=== PATIENT | female | born 1945 | race Caucasian/White ===

== ENCOUNTER 2020-07-15 15:14 | Observation (INO) | payer MEDICARE ==
--- NOTE | 2020-07-15 16:04 | ER Document Report ---
ED Medical Screen (RME) - General Chief Complaint: Shortness Of Breath Stated Complaint: SHORTNESS OF BREATH,COUGH Time Seen by Provider: 07/15/20 15:57 Primary Care Provider: GRACE COHEN MD [Primary Care Provider] - Follow up as needed Notes: 75-year-old female presents to ED for complaint of cough congestion short of breath for about 2 months. She states she has had a low-grade fever off and on. She does have a decrease in taste but no decrease in smell that she knows of I did review the medical history with her. She does not smoke drink or use any illicit drugs. Will get flu Covid and chest x-ray and she will be followed by the another provider. Her lungs are clear to auscultation very minimal shortness of breath at this time. The patient was evaluated during the global Covid 19 pandemic, and that diagnosis was suspected/considered upon their initial presentation. Their evaluation, treatment and testing was consistent with current guidelines for patients who present with complaints or symptoms that may be related to Covid 19. I have greeted and performed a rapid initial assessment of this patient. A comprehensive ED assessment and evaluation of the patient, analysis of test re sults and completion of medical decision making process will be conducted by an additional ED providers. TRAVEL OUTSIDE OF THE [place] IN LAST 30 DAYS: No - Related Data Allergies/Adverse Reactions: erythromycin base [Erythromycin Base] Allergy (Verified 08/19/16 14:24) Penicillins Allergy (Verified 08/19/16 14:24) Anaphylaxis Shellfish * [Shellfish] Allergy (Verified 08/19/16 14:24) ITCHING Past Medical History - General Information source: Patient - Social History Cigarette use (# per day): No Chew tobacco use (# tins/day): No Frequency of alcohol use: None Drug Abuse: None Lives with: Family Family history: Reviewed & Not Pertinent - Past Medical History Cardiac Medical History: Reports: Hx Hypertension - MEDICATION CONTROLLED Pulmonary Medical History: Reports: Other - Reactive lung disorder EENT Medical History: Reports: None Neurological Medical History: Reports: None Endocrine Medical History: Reports: None Renal/ Medical History: Reports: None Malignancy Medical History: Reports: None GI Medical History: Reports: Hx Colonoscopy, Hx Endoscopy Musculoskeltal Medical History: Reports Hx Arthritis Skin Medical History: Reports None Psychiatric Medical History: Reports: Hx Anxiety, Hx Depression Traumatic Medical History: Reports: None Infectious Medical History: Reports: None Past Surgical History: Reports: Hx Orthopedic Surgery - Laminectomy and knee replacement, Hx Vascular Surgery - Stent in subclavian, Other - 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 - Immunizations History of Pneumococcal Vaccine: Yes - 2018 History of Influenza Vaccine for 06/2019 - 11/2019 Season: Yes Immunizations Comment: Also has had the shingles shot Physical Exam - Vital signs Vitals: Temp Pulse Resp BP Pulse Ox 99.2 F 97 22 H 167/105 H 95 07/15/20 15:21 07/15/20 15:21 07/15/20 15:21 07/15/20 15:21 07/15/20 15:21 Course - Vital Signs Vital signs: Temp Pulse Resp BP Pulse Ox 99.2 F 97 22 H 167/105 H 95 07/15/20 15:21 07/15/20 15:21 07/15/20 15:21 07/15/20 15:21 07/15/20 15:21 Doctor's Discharge - Discharge Referrals: GRACE COHEN MD [Primary Care Provider] - Follow up as needed
--- NOTE | 2020-07-15 16:32 | RADIOLOGY REPORT (SQ) ---
EXAM DESCRIPTION: CHEST SINGLE VIEW IMAGES COMPLETED DATE/TIME: 07/15/2020 4:18 pm REASON FOR STUDY: cough congestion short of breath COMPARISON: None. EXAM PARAMETERS: NUMBER OF VIEWS: One view. TECHNIQUE: Single frontal radiographic view of the chest acquired. RADIATION DOSE: NA LIMITATIONS: None. FINDINGS: LUNGS AND PLEURA: No opacities, masses or pneumothorax. No pleural effusion. MEDIASTINUM AND HILAR STRUCTURES: No masses. Contour normal. HEART AND VASCULAR STRUCTURES: Heart normal in size. Normal vasculature. BONES: No acute findings. HARDWARE: None in the chest. OTHER: No other significant finding. IMPRESSION: NO ACUTE RADIOGRAPHIC FINDING IN THE CHEST. TECHNICAL DOCUMENTATION: JOB ID: [id number] 2010 [employer]- All Rights Reserved Reading location - IP/workstation name: [email or web address]
[2020-07-15 18:18] LABS: ABSOLUTE BASOPHILS # (AUTO) 0.1 10^3/uL (0.0-0.2); ABSOLUTE EOSINOPHILS # (AUTO) 0.1 10^3/uL (0.0-0.6); ABSOLUTE LYMPHOCYTES (AUTO) 2.2 10^3/uL (0.5-4.7); ABSOLUTE MONOCYTES (AUTO) 0.9 10^3/uL (0.1-1.4); ABSOLUTE NEUT (AUTO) 9.9 10^3/uL (1.7-8.2); BASOPHILS % (AUTO) 0.5 % (0-2); EOSINOPHILS % (AUTO) 0.6 % (0-6); HEMATOCRIT 34.3 % (36.0-47.0); HEMOGLOBIN 10.9 g/dL (12.0-15.5); LYMPHOCYTES % (AUTO) 16.4 % (13-45); MEAN CORPUSCULAR HEMOGLOBIN 23.8 pg (27.0-33.4); MEAN CORPUSCULAR HGB CONC 31.7 g/dL (32.0-36.0); MEAN CORPUSCULAR VOLUME 75 fl (80-97); MONOCYTES % (AUTO) 6.9 % (3-13); PLATELET COUNT 336 10^3/uL (150-450); RED BLOOD COUNT 4.57 10^6/uL (3.72-5.28); RED CELL DISTRIBUTION WIDTH 16.7 % (11.5-14.0); SEGMENTED NEUTROPHILS % (AUTO) 75.6 % (42-78); TOTAL CELLS COUNTED % (AUTO) 100 %; WHITE BLOOD COUNT 13.1 10^3/uL (4.0-10.5)
[2020-07-15] MEDS ORDERED: IPRATROPIUM/ALBUTEROL 0.5-2.5 MG/3 ML AMPUL NEB ONE ×2 (18:26→21:31)
[2020-07-15 18:39] LABS: ALBUMIN 4.3 g/dL (3.5-5.0); ALKALINE PHOSPHATASE 59 U/L (38-126); ANION GAP 11 (5-19); ASPARTATE AMINO TRANSFERASE 51 U/L (14-36); BILIRUBIN,DIRECT 0.1 mg/dL (0.0-0.4); BILIRUBIN,TOTAL 0.3 mg/dL (0.2-1.3); BLOOD UREA NITROGEN 13 mg/dL (7-20); CALCIUM 9.7 mg/dL (8.4-10.2); CARBON DIOXIDE 27 mmol/L (22-30); CHLORIDE 99 mmol/L (98-107); GLUCOSE 96 mg/dL (75-110); POTASSIUM 4.2 mmol/L (3.6-5.0); TOTAL PROTEIN 7.2 g/dL (6.3-8.2)
[2020-07-15 18:50] LABS: NT PRO BNP 197 pg/mL (<125)
[2020-07-15 18:54] LABS: TROPONIN I < 0.012 ng/mL
--- NOTE | 2020-07-15 20:05 | ER Document Report ---
ED General - General Chief Complaint: Shortness Of Breath Stated Complaint: SHORTNESS OF BREATH,COUGH Time Seen by Provider: 07/15/20 15:57 Primary Care Provider: GRACE COHEN MD [Primary Care Provider] - Follow up as needed TRAVEL OUTSIDE OF THE [place] IN LAST 30 DAYS: No - HPI Notes: 75-year-old female to the emergency department with complaints of cough, shortness of breath, low-grade fever for the past 2 months. She states that she also has been feeling exertional shortness of breath. She states that when she walks from one room to the next she feels like she climbed a mountain. She states that she is a former smoker. She states she has been told that she has reactive lung disorder but never been diagnosed with COPD. She states she quit smoking over 30 years ago. She states she has high blood pressure. She has never had a history of congestive heart failure. She denies any chest pain with this. She states in regards to her fever that her temperatures run no higher than 99.4. She states the cough is productive of yellow-osorio phlegm. She states that she feels like her legs are a little bit more swollen as well. She has never had a heart attack. She is had a normal stress test for years ago. She states that she has not recently been traveling on any exogenous hormones. She has not been more immobilized. There is past family history of congestive heart failure. Denies any known sick contacts for coronavirus. Does admit to some mild decrease in taste but denies any loss of smell. The patient was evaluated during the global COVID 19 pandemic, and that diagnosis was suspected/considered upon their initial presentation. Their evaluation, treatment, and testing was consistent with current guidelines for patients who present with complaints or symptoms that may be related to COVID-19. - Related Data Allergies/Adverse Reactions: erythromycin base [Erythromycin Base] Allergy (Verified 07/15/20 18:24) Penicillins Allergy (Verified 07/15/20 18:24) Anaphylaxis Shellfish * [Shellfish] Allergy (Verified 07/15/20 18:24) ITCHING Past Medical History - General Information source: Patient - Social History Smoking Status: Former Smoker Cigarette use (# per day): No Chew tobacco use (# tins/day): No Frequency of alcohol use: None Drug Abuse: None Lives with: Family Family History: Reviewed & Not Pertinent Patient has homicidal ideation: No - Past Medical History Cardiac Medical History: Reports: Hx Hypertension - MEDICATION CONTROLLED Pulmonary Medical History: Reports: Other - Reactive lung disorder EENT Medical History: Reports: None Neurological Medical History: Reports: None Endocrine Medical History: Reports: None Renal/ Medical History: Reports: None Malignancy Medical History: Reports: None GI Medical History: Reports: Hx Colonoscopy, Hx Endoscopy Musculoskeletal Medical History: Reports Hx Arthritis Skin Medical History: Reports None Psychiatric Medical History: Reports: Hx Anxiety, Hx Depression Traumatic Medical History: Reports: None Infectious Medical History: Reports: None Past Surgical History: Reports: Hx Orthopedic Surgery - Laminectomy and knee replacement, Hx Vascular Surgery - Stent in subclavian, Other - 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 denies: Chills Cardiovascular: Edema. denies: Chest pain, Palpitations, Heart racing, Orthopnea, Dyspnea, Syncope, Dizziness, Lightheaded Respiratory: Cough, Short of breath Physical Exam - Vital signs Vitals: Temp Pulse Resp BP Pulse Ox 99.2 F 97 22 H 167/105 H 95 07/15/20 15:21 07/15/20 15:21 07/15/20 15:21 07/15/20 15:21 07/15/20 15:21 Interpretation: Hypertensive - General General appearance: Appears well, Alert In distress: None - HEENT Head: Normocephalic, Atraumatic Eyes: Normal Pupils: PERRL Neck: Normal, Supple - Respiratory Respiratory status: No respiratory distress Chest status: Nontender. No: Accessory muscle use Breath sounds: Normal, Wheezing - fine expiratory wheezing in all lung reynoso.. No: Rales, Rhonchi Chest palpation: Normal - Cardiovascular Rhythm: Regular Heart sounds: Normal auscultation Murmur: No Notes: bilateral leg edema, trace to 1+ - Abdominal Inspection: Normal Distension: No distension Bowel sounds: Normal Tenderness: Nontender Organomegaly: No organomegaly - Back Back: Normal, Nontender. No: CVA tenderness - Neurological Neuro grossly intact: Yes Cognition: Normal Orientation: AAOx4 [place] Coma Scale Eye Opening: Spontaneous [place] Coma Scale Verbal: Oriented [place] Coma Scale Motor: Obeys Commands [place] Coma Scale Total: 15 Speech: Normal Cranial nerves: Normal Cerebellar coordination: Normal Motor strength normal: LUE, RUE, LLE, RLE Additional motor exam normals: Equal network mgr Sensory: Normal - Psychological Associated symptoms: Normal affect, Normal mood - Skin Skin Temperature: Warm Skin Moisture: Dry Skin Color: Normal Course - Re-evaluation Re-evalutation: 07/15/20 22:05 Attempted to ambulate the patient after breathing treatment. However she got significantly short of breath and oxygen levels went down to 89%. After resting for several minutes she could recover and her oxygen level would improve however she still was tachypneic and looking like she was working to breathe. She did not have further wheezing. 07/15/20 22:53 Discussed the patient with Dr. Rosario, my ER attending. She agrees that if patient is deciding when she ambulates and is tachycardic that admission is warranted. Spoke with , hospitalist. He would like to come and see the patient prior to admission. We discussed x-ray finding, BNP, troponin, D-dimer, ambulation findings. He is aware that I have ordered Rocephin for the patient as well as Solu-Medrol and 2 DuoNebs. He will follow up with me once he sees the patient. Progress: Dr. Ochoa saw patient and will accept her to his service. He would like for her to go to the medical floor. - Vital Signs Vital signs: Temp Pulse Resp BP Pulse Ox 99.2 F 97 22 H 167/105 H 95 07/15/20 18:23 07/15/20 15:21 07/15/20 15:21 07/15/20 15:21 07/15/20 15:21 - Laboratory Result Diagrams: 07/15/20 17:58 07/15/20 17:58 Laboratory results interpreted by me: 07/15/20 07/15/20 07/15/20 17:58 17:58 17:58 WBC 13.1 H Hgb 10.9 L Hct 34.3 L MCV 75 L MCH 23.8 L MCHC 31.7 L RDW 16.7 H Absolute Neuts (auto) 9.9 H AST 51 H NT-Pro-B Natriuret Pep 197 H - Diagnostic Test Radiology reviewed: Image reviewed, Reports reviewed - EKG Interpretation by Me Additional EKG results interpreted by me: 07/15/20 Rate 90 Rhythm sinus Interpretation: No STEMI, no ST elevation. No comparison. Discharge - Discharge Clinical Impression: Exertional shortness of breath, Hypoxia Condition: Stable Disposition: ADMITTED INPATIENT Admitting Provider: Dr. Ochoa Unit Admitted: Medical Floor Referrals: GRACE COHEN MD [Primary Care Provider] - Follow up as needed
[2020-07-15 20:45] LABS: A TYPE INFLUENZA AG NEGATIVE (NEGATIVE); B INFLUENZA AG NEGATIVE (NEGATIVE)
[2020-07-15] MEDS ORDERED: METHYLPREDNISOLONE INJ 125 MG/2 ML SDV IV ONE (21:02)
[2020-07-15] MEDS ORDERED: CEFTRIAXONE 1 GM/D5W RTU 1 GM/50 ML RTUPB IV ONE (22:36)
[2020-07-15] MEDS ORDERED: ONDANSETRON HCL INJ/PF 4 MG/2 ML SDV IV PRN (23:27)
[2020-07-15] MEDS ORDERED: ACETAMINOPHEN 325 MG TABLET PO PRN (23:27)
[2020-07-15] MEDS ORDERED: IPRATROPIUM/ALBUTEROL 0.5-2.5 MG/3 ML AMPUL NEB PRN (23:27)
[2020-07-15] MEDS ORDERED: ACETAMINOPHEN 325 MG TABLET PO ONE (23:27)
--- NOTE | 2020-07-16 00:26 | PDOC H&P ---
History of Present Illness Admission Date/PCP: GRACE COHEN MD Patient complains of: shortness of breath History of Present Illness: GILLES YOUNGER is a 75 year old female with a history of hypertension and reactive airway disease now presents with progressively worsening shortness of breath with exertion for the past 2 months and over the past week has been feeling short of breath and minimal activities like going to bathroom makes her significantly short of breath. Associated with this she also states that she has been having bilateral leg swelling over the past 2 months but denies orthopnea or PND. She also reports that she has been having cough productive of yellowish sputum, low-grade subjective fever and wheezing. She states that she has never been diagnosed with COPD in the past and has been a very long time since she quit smoking. She uses inhalers occasionally for reactive airway disease. She denies runny nose, congestion, sore throat, nausea, vomiting, recent contact with sick patient. She was treated with IV steroids and br eathing treatment at the ED with interval improvement in her shortness of breath but her oxygen saturation dropped to 88-89 after walking 10 to 15 feet and became very short of breath. Past Medical History Cardiac Medical History: Reports: Hypertension - MEDICATION CONTROLLED Pulmonary Medical History: Reports: Other - Reactive lung disorder EENT Medical History: Reports: None Neurological Medical History: Reports: None Endocrine Medical History: Reports: None Renal/ Medical History: Reports: None Malignancy Medical History: Reports: None Musculoskeltal Medical History: Reports: Arthritis Skin Medical History: Reports: None Psychiatric Medical History: Reports: Depression Traumatic Medical History: Reports: None Hematology: Denies: Anemia, Sickle Cell Disease Infectious Medical History: Reports: None Past Surgical History Past Surgical History: Reports: Orthopedic Surgery - Laminectomy and knee replacement, Vascular Surgery - Stent in subclavian, Other - 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 Denies: Amputation Social History Information Source: Patient Lives with: Family Smoking Status: Former Smoker Electronic Cigarette use?: No Hx Recreational Drug Use: No Drugs: None - Advance Directive Resuscitation Status: Full Code Family History Family History: Reviewed & Not Pertinent Parental Family History Reviewed: Yes Children Family History Reviewed: Yes Sibling(s) Family History Reviewed.: Yes Medication/Allergy Home Medications: Amlodipine/Valsartan [Exforge 5-160 mg Tablet] 1 tab PO DAILY 03/10/13 Bisoprolol Fumarate/Hctz [Bisoprolol-Hctz 10-6.25 mg Tab] 2.5 mg PO DAILY 03/10/13 Clonazepam [Klonopin 0.5 mg Tablet Rapid Dissolve] 0.5 mg PO BID 03/10/13 Fluoxetine HCl [Prozac] 60 mg PO DAILY 03/10/13 Nortriptyline HCl [Pamelor 25 Mg Capsule] 25 mg PO DAILY 03/10/13 Omeprazole [Prilosec 20 mg Capsule] 20 mg PO DAILY 03/10/13 Dicyclomine HCl [Bentyl 20 mg Tablet] 20 mg PO QID #20 tablet 08/19/16 Promethazine HCl [Phenergan 25 mg Tablet] 25 mg PO ASDIR PRN #12 tablet 08/19/16 Allergies/Adverse Reactions: erythromycin base [Erythromycin Base] Allergy (Verified 07/15/20 18:24) Penicillins Allergy (Verified 07/15/20 18:24) Anaphylaxis Shellfish * [Shellfish] Allergy (Verified 07/15/20 18:24) ITCHING Review of Systems Constitutional: PRESENT: as per HPI Eyes: ABSENT: visual disturbances Ears: ABSENT: hearing changes Nose, Mouth, and Throat: ABSENT: as per HPI, headache(s), mouth pain, sore throat, vertigo, other Cardiovascular: PRESENT: as per HPI Respiratory: PRESENT: as per HPI Gastrointestinal: ABSENT: abdominal pain, constipation, diarrhea, hematemesis, hematochezia, nausea, vomiting Genitourinary: ABSENT: dysuria, hematuria Musculoskeletal: ABSENT: joint swelling Integumentary: ABSENT: rash, wounds Neurological: ABSENT: abnormal gait, abnormal speech, confusion, dizziness, focal weakness, syncope Psychiatric: ABSENT: anxiety, depression, homidical ideation, suicidal ideation Endocrine: ABSENT: cold intolerance, heat intolerance, polydipsia, polyuria Hematologic/Lymphatic: ABSENT: easy bleeding, easy bruising Physical Exam Vital Signs: Temp Pulse Resp BP Pulse Ox 99.2 F 97 22 H 167/105 H 95 07/15/20 18:23 07/15/20 15:21 07/15/20 15:21 07/15/20 15:21 07/15/20 15:21 Intake & Output 07/14/20 07/15/20 07/16/20 06:59 06:59 06:59 Intake Total 50 Balance 50 Weight 100.9 kg Additional comments: GENERAL APPEARANCE: Alert and oriented x3, no acute distress HEENT: Normocephalic and atraumatic. No scleral icterus. Moist oral mucosa NECK: Supple. No lymphadenopathy or tenderness. No carotid bruit. No JVD CHEST: Symmetric. Nontender to palpation. LUNGS: Clear with good air entry bilaterally, no wheezing or crackles appreciated HEART: Regular rate and rhythm with normal S1 and S2. No murmurs, gallops, or rubs. ABDOMEN: Flat, soft, active bowel sounds, no direct or rebound tenderness. No organomegaly detected. EXTREMITIES: Has +2 pitting edema below knees MUSCULOSKELETAL: Has scar from right knee replacement surgery. No muscle atrophy or deformity noted PSYCHIATRIC: The patient is awake, alert, and oriented x3. Recent and remote memory is intact. Appropriate mood and affect. SKIN: Warm, dry, and well perfused. NEUROLOGIC: No focal sensory or motor deficits are noted. Results Laboratory Results: 07/15/20 17:58 07/15/20 17:58 07/15/20 07/15/20 17:58 17:58 WBC 13.1 H RBC 4.57 Hgb 10.9 L Hct 34.3 L MCV 75 L MCH 23.8 L MCHC 31.7 L RDW 16.7 H Plt Count 336 Seg Neutrophils % 75.6 Sodium 137.0 Potassium 4.2 Chloride 99 Carbon Dioxide 27 Anion Gap 11 BUN 13 Creatinine 0.84 Est GFR ( Amer) > 60 Glucose 96 Calcium 9.7 Total Bilirubin 0.3 AST 51 H Alkaline Phosphatase 59 Total Protein 7.2 Albumin 4.3 07/15/20 17:58 Troponin I < 0.012 NT-Pro-B Natriuret Pep 197 H Impressions: Chest X-Ray 07/15/20 16:05 IMPRESSION: NO ACUTE RADIOGRAPHIC FINDING IN THE CHEST. Assessment and Plan - Diagnosis (1) Exertional shortness of breath Is this a current diagnosis for this admission?: Yes Plan: Patient presents with dyspnea on exertion, bilateral lower extremity swelling Was noted to have wheezing on presentation at the ED BNP was 197, chest x-ray showed no acute findings Likely cause could be new onset heart failure vs undiagnosed COPD exacerbation Started on the Lasix, strict I&O's, daily weight, fluid restriction Continue breathing treatment and prednisone 40 mg daily Will obtain echocardiography in the morning Consider obtaining PFT outpatient (2) Bronchitis Is this a current diagnosis for this admission?: Yes Plan: Presence with cough productive of yellow sputum Has leukocytosis, chest x-ray showed no acute findings Patient was given ceftriaxone 1g IV at the ED Continue breathing treatment Started on Levaquin 750 mg p.o. daily May benefit from outpatient PFT (3) Suspected COVID-19 virus infection Is this a current diagnosis for this admission?: Yes Plan: Presenting symptoms suspicious for possible COVID-19 Continue supportive care Special airborne isolation Follow-up with COVID-19 result (4) Leukocytosis Is this a current diagnosis for this admission?: Yes Plan: Likely due to viral infection Currently on Levaquin (5) Hypertension Is this a current diagnosis for this admission?: Yes Plan: Continue home medications - Time Time Spent with patient: 35 or more minutes Total Critical Time (Minutes): 40 Medications reviewed and adjusted accordingly: Yes Anticipated Discharge Disposition: Home, Self Care Anticipated Discharge Timeframe: within 48 hours - Inpatient Certification Based on my medical assessment, after consideration of the patient's comorbidities, presenting symptoms, or acuity I expect that the services needed warrant INPATIENT care.: Yes I certify that my determination is in accordance with my understanding of Medicare's requirements for reasonable and necessary INPATIENT services [42 CFR 412.3e].: Yes Medical Necessity: Failure to Improve With Outpatient Therapy, Need Close Monitoring Due to Risk of Patient Decompensation, Need For Continuous Telemetry Monitoring Post Hospital Care: D/C or Transfer Summary
[2020-07-16] MEDS ORDERED: AZITHROMYCIN 250 MG TABLET PO SCH (00:45)
[2020-07-16] MEDS: FUROSEMIDE INJ/PF 40 MG/4 ML SDV IV SCH ×3 (02:03→23:34)
[2020-07-16] MEDS ORDERED: PANTOPRAZOLE SODIUM 20 MG TABLET.DR PO SCH (06:00)
--- NOTE | 2020-07-16 06:51 | EKG REPORT ---
SEVERITY:- ABNORMAL ECG - SINUS RHYTHM PROBABLE LEFT ATRIAL ABNORMALITY BASELINE ARTEFACT : Confirmed by: Edmund Jessica MD 16-Jul-2020 06:50:42
[2020-07-16 08:34] LABS: ABSOLUTE LYMPHOCYTES (AUTO) 0.9 10^3/uL (0.5-4.7); ABSOLUTE MONOCYTES (AUTO) 0.1 10^3/uL (0.1-1.4); ABSOLUTE NEUT (AUTO) 7.8 10^3/uL (1.7-8.2); BASOPHILS % (AUTO) 0.2 % (0-2); HEMATOCRIT 36.2 % (36.0-47.0); HEMOGLOBIN 11.7 g/dL (12.0-15.5); LYMPHOCYTES % (AUTO) 10.5 % (13-45); MEAN CORPUSCULAR HGB CONC 32.4 g/dL (32.0-36.0); MEAN CORPUSCULAR VOLUME 74 fl (80-97); MONOCYTES % (AUTO) 0.9 % (3-13); PLATELET COUNT 340 10^3/uL (150-450); RED BLOOD COUNT 4.88 10^6/uL (3.72-5.28); RED CELL DISTRIBUTION WIDTH 16.6 % (11.5-14.0); SEGMENTED NEUTROPHILS % (AUTO) 88.4 % (42-78); TOTAL CELLS COUNTED % (AUTO) 100 %; WHITE BLOOD COUNT 8.8 10^3/uL (4.0-10.5)
[2020-07-16 08:48] LABS: ANION GAP 15 (5-19); BLOOD UREA NITROGEN 13 mg/dL (7-20); CARBON DIOXIDE 25 mmol/L (22-30); CHLORIDE 100 mmol/L (98-107); GLUCOSE 172 mg/dL (75-110); POTASSIUM 4.5 mmol/L (3.6-5.0)
[2020-07-16] MEDS ORDERED: AMLODIPINE BESYLATE 5 MG TABLET PO SCH (10:00)
[2020-07-16] MEDS: PREDNISONE 20 MG TABLET PO SCH (10:06)
[2020-07-16] MEDS: LEVOFLOXACIN 750 MG TABLET PO SCH (10:07)
[2020-07-16] MEDS: ENOXAPARIN SODIUM INJ 40 MG/0.4 ML DISP.SYRIN SUBCUT SCH (10:07)
[2020-07-16] MEDS: FLUOXETINE HCL 20 MG CAPSULE PO SCH (10:07)
[2020-07-16 13:48] LABS: APPEARANCE,URINE CLEAR; BILIRUBIN,URINE NEGATIVE (NEGATIVE); COLOR,URINE STRAW; GLUCOSE, URINE NEGATIVE (NEGATIVE); KETONES,URINE NEGATIVE (NEGATIVE); LEUKOCYTE ESTERASE,URINE NEGATIVE (NEGATIVE); NITRITE,URINE NEGATIVE (NEGATIVE); PROTEIN,URINE NEGATIVE (NEGATIVE); URINE SPECIFIC GRAVITY 1.006; UROBILINOGEN,URINE NEGATIVE mg/dL (<2.0)
[2020-07-16] MEDS ORDERED: [UNRECOGNIZED DRUG - OTHER] PO SCH (14:00)
[2020-07-16] MEDS ORDERED: BISOPROLOL PO SCH (14:00)
[2020-07-16] MEDS ORDERED: HYDROCHLOROTHIAZIDE PO SCH (14:00)
[2020-07-16] MEDS ORDERED: ACETAMINOPHEN 325 MG TABLET PO PRN (16:18)
--- NOTE | 2020-07-16 16:43 | PDOC PROGRESS REPORT ---
Subjective Progress Note for:: 07/16/20 Subjective:: The patient is a 75-year-old female with a past medical history significant for hypertension, HLD, GERD, arthritis, and depression/anxiety who was admitted 07/16/2020 with dyspnea on exertion for evaluation for new diagnosis of CHF. Patient was seen on afternoon rounds. She is found resting in bed, comfortably, on room air. She was noted to be lying fully supine without tachypnea or increased work of breathing. She does report that dyspnea while at rest has res olved but does have continued shortness of breath with minimal exertion. She reports edema to bilateral lower extremities. Confirms low-grade fevers (99th) x2 to 3 weeks and a nonproductive cough. Otherwise, she requests to be discharged home. She otherwise denies chest pain, palpitations, orthopnea, abdominal pain, nausea, vomiting, diarrhea. She has no other questions or concerns at this time. No concerns per nursing. Reason For Visit: POSSIBLE NEW ONSET HEART FAILURE,HYPERACTIVE Physical Exam Vital Signs: Temp Pulse Resp BP Pulse Ox 98.3 F 111 H 16 150/69 H 93 07/16/20 15:00 07/16/20 15:00 07/16/20 15:00 07/16/20 15:00 07/16/20 15:00 Intake & Output 07/15/20 07/16/20 07/17/20 06:59 06:59 06:59 Intake Total 50 Balance 50 Weight 100.9 kg General appearance: PRESENT: no acute distress, cooperative, obese, well- developed, well-nourished Head exam: PRESENT: atraumatic, normocephalic Eye exam: PRESENT: conjunctiva pink, EOMI, PERRLA. ABSENT: scleral icterus Mouth exam: PRESENT: moist, tongue midline Respiratory exam: PRESENT: clear to auscultation sylvie, symmetrical, unlabored, other - Room air. Breathing comfortably and maintaining oxygen saturations while lying fully supine.. ABSENT: rales, rhonchi, wheezes Cardiovascular exam: PRESENT: RRR, +S1, +S2, tachycardia - HR 104-120. ABSENT: diastolic murmur, rubs, systolic murmur Vascular exam: PRESENT: normal capillary refill Extremities exam: PRESENT: full ROM, +1 edema - +1, nonpitting, BLE. ABSENT: calf tenderness, clubbing, pedal edema Neurological exam: PRESENT: alert, awake, oriented to person, oriented to place, oriented to time, oriented to situation, CN II-XII grossly intact. ABSENT: motor sensory deficit Psychiatric exam: PRESENT: agitated, anxious. ABSENT: homicidal ideation, suicidal ideation Skin exam: PRESENT: dry, intact, warm. ABSENT: cyanosis, rash Results Laboratory Results: 07/16/20 08:10 07/16/20 08:10 07/15/20 07/15/20 07/16/20 17:58 17:58 08:10 WBC 13.1 H 8.8 RBC 4.57 4.88 Hgb 10.9 L 11.7 L Hct 34.3 L 36.2 MCV 75 L 74 L MCH 23.8 L 24.0 L MCHC 31.7 L 32.4 RDW 16.7 H 16.6 H Plt Count 336 340 Seg Neutrophils % 75.6 88.4 H Sodium 137.0 Potassium 4.2 Chloride 99 Carbon Dioxide 27 Anion Gap 11 BUN 13 Creatinine 0.84 Est GFR ( Amer) > 60 Glucose 96 Calcium 9.7 Total Bilirubin 0.3 AST 51 H Alkaline Phosphatase 59 Total Protein 7.2 Albumin 4.3 Urine Color Urine Appearance Urine pH Ur Specific [place] Urine Protein Urine Glucose (UA) Urine Ketones Urine Blood Urine Nitrite Ur Leukocyte Esterase Urine WBC (Auto) Urine RBC (Auto) 07/16/20 07/16/20 08:10 13:00 WBC RBC Hgb Hct MCV MCH MCHC RDW Plt Count Seg Neutrophils % Sodium 139.6 Potassium 4.5 Chloride 100 Carbon Dioxide 25 Anion Gap 15 BUN 13 Creatinine 0.74 Est GFR ( Amer) > 60 Glucose 172 H Calcium 10.0 Total Bilirubin AST Alkaline Phosphatase Total Protein Albumin Urine Color STRAW Urine Appearance CLEAR Urine pH 6.0 Ur Specific [place] 1.006 Urine Protein NEGATIVE Urine Glucose (UA) NEGATIVE Urine Ketones NEGATIVE Urine Blood NEGATIVE Urine Nitrite NEGATIVE Ur Leukocyte Esterase NEGATIVE Urine WBC (Auto) 1 Urine RBC (Auto) 1 07/15/20 07/16/20 07/16/20 17:58 01:08 08:10 Troponin I < 0.012 < 0.012 < 0.012 NT-Pro-B Natriuret Pep 197 H Impressions: Chest X-Ray 07/15/20 16:05 IMPRESSION: NO ACUTE RADIOGRAPHIC FINDING IN THE CHEST. Assessment and Plan - Diagnosis (1) Bronchitis Is this a current diagnosis for this admission?: Yes Plan: Presence with cough productive of yellow sputum Leukocytosis has resolved. Chest x-ray showed no acute findings Sputum culture pending. Patient was given ceftriaxone 1g IV at the ED Continue as needed breathing treatment Started on Levaquin 750 mg p.o. daily May benefit from outpatient PFT (2) Exertional shortness of breath Is this a current diagnosis for this admission?: Yes Plan: Patient presents with dyspnea on exertion, bilateral lower extremity swelling Was noted to have wheezing on presentation at the ED BNP was 197, chest x-ray showed no acute findings Likely cause could be new onset heart failure vs undiagnosed COPD exacerbation Continue on the Lasix, strict I&O's, daily weight, fluid restriction Continue breathing treatment and prednisone 40 mg daily Will obtain echocardiography Consider obtaining PFT outpatient (3) Hypertension Is this a current diagnosis for this admission?: Yes Plan: Blood pressure remains somewhat elevated; 150/69 this afternoon. Patient is noted to be anxious which may possibly be contributing. Have continued her home dose amlodipine, benazepril, bisoprolol, and hydrochlorothiazide. Low-sodium diet. (4) Leukocytosis Is this a current diagnosis for this admission?: Yes Plan: Resolved. Likely due to viral infection Currently on Levaquin for possible bronchitis (5) Suspected COVID-19 virus infection Is this a current diagnosis for this admission?: Yes Plan: Presenting symptoms suspicious for possible COVID-19 Continue supportive care Special airborne isolation Follow-up with COVID-19 result - Plan Summary Summary: Patient overall appears stable. She is maintaining oxygen saturations on room air while at rest. She is lying fully supine comfortably. Noted to have trace to +1, nonpitting, edema to bilateral lower extremities with clear lung sounds. She does report continued shortness of breath. Evaluation for CHF is being considered; echocardiogram pending. Hopefully this can be arranged/obtained within the next 24 hours patient is anxious to go home and is rapidly improving towards that goal. Anticipate discharge next 24 hours. - Time Time Spent with patient: 25-34 minutes Medications reviewed and adjusted accordingly: Yes Anticipated Discharge Disposition: Home, Self Care Anticipated Discharge Timeframe: within 24 hours
[2020-07-16] MEDS ORDERED: CLONAZEPAM 1 MG TABLET PO SCH (18:00)
[2020-07-16] MEDS ORDERED: (PENDING PHARMACY ID) (Clonazepam [Klonopin] 0.5 MG) PO SCH (18:00)
[2020-07-16] MEDS: CLONAZEPAM 1 MG TABLET PO PRN (21:10)
[2020-07-16] MEDS ORDERED: (PENDING PHARMACY ID) (Pravastatin Sodium [Pravastatin Sodium] 80 MG) PO SCH (22:00)
[2020-07-16] MEDS ORDERED: ATORVASTATIN CALCIUM 20 MG TABLET PO SCH (22:00)
[2020-07-16] MEDS ORDERED: (PENDING PHARMACY ID) (Nortriptyline Hcl [Pamelor] 75 MG) PO SCH (22:00)
[2020-07-16] MEDS ORDERED: NORTRIPTYLINE HCL 25 MG CAPSULE PO SCH (22:00)
[2020-07-17] MEDS: CLONAZEPAM 1 MG TABLET PO PRN (05:57)
[2020-07-17] MEDS ORDERED: PANTOPRAZOLE SODIUM 40 MG TABLET.DR PO SCH (06:00)
[2020-07-17 07:30] LABS: HEMATOCRIT 35.1 % (36.0-47.0); HEMOGLOBIN 11.4 g/dL (12.0-15.5); MEAN CORPUSCULAR HEMOGLOBIN 24.1 pg (27.0-33.4); MEAN CORPUSCULAR HGB CONC 32.3 g/dL (32.0-36.0); MEAN CORPUSCULAR VOLUME 75 fl (80-97); PLATELET COUNT 360 10^3/uL (150-450); RED BLOOD COUNT 4.71 10^6/uL (3.72-5.28); RED CELL DISTRIBUTION WIDTH 16.6 % (11.5-14.0); WHITE BLOOD COUNT 15.5 10^3/uL (4.0-10.5)
[2020-07-17 07:53] LABS: ANION GAP 13 (5-19); BLOOD UREA NITROGEN 21 mg/dL (7-20); CALCIUM 9.5 mg/dL (8.4-10.2); CARBON DIOXIDE 28 mmol/L (22-30); CHLORIDE 100 mmol/L (98-107); GLUCOSE 120 mg/dL (75-110)
[2020-07-17 08:02] LABS: POTASSIUM 3.5 mmol/L (3.6-5.0)
[2020-07-17] MEDS: PREDNISONE 20 MG TABLET PO SCH (09:59)
[2020-07-17] MEDS: ENOXAPARIN SODIUM INJ 40 MG/0.4 ML DISP.SYRIN SUBCUT SCH (09:59)
[2020-07-17] MEDS ORDERED: BENAZEPRIL HCL 20 MG TABLET PO SCH (10:00)
[2020-07-17] MEDS ORDERED: BISOPROLOL PO SCH (10:00)
[2020-07-17] MEDS ORDERED: PRENATAL VITAMIN W DHA CAPSULE PO SCH (10:00)
[2020-07-17] MEDS ORDERED: AMLODIPINE BESYLATE 5 MG TABLET PO SCH (10:00)
[2020-07-17] MEDS ORDERED: HYDROCHLOROTHIAZIDE PO SCH (10:00)
[2020-07-17] MEDS: FLUOXETINE HCL 20 MG CAPSULE PO SCH (10:00)
[2020-07-17] MEDS ORDERED: [UNRECOGNIZED DRUG - OTHER] PO SCH (10:00)
[2020-07-17] MEDS ORDERED: (PENDING PHARMACY ID) (Amlodipine Besylate/Benazepril [Amlodipine-Benazepril 5-20 Mg] 1 CA PO SCH (10:00)
[2020-07-17] MEDS: FUROSEMIDE INJ/PF 40 MG/4 ML SDV IV SCH (10:01)
[2020-07-17] MEDS: LEVOFLOXACIN 750 MG TABLET PO SCH (10:01)
[2020-07-17] MEDS ORDERED: POTASSIUM CHLORIDE 10 MEQ TABLET.ER PO ONE (11:00)
[2020-07-17 11:20] VITALS: BP 150/69
--- NOTE | 2020-07-17 16:21 | PDOC DISCHARGE SUMMARY ---
Impression - Admit/DC Date/PCP Admission Date/Primary Care Provider: 07/15/20 23:37 GRACE COHEN MD Discharge Date: 07/17/20 - Discharge Diagnosis (1) Bronchitis Is this a current diagnosis for this admission?: Yes (2) Exertional shortness of breath Is this a current diagnosis for this admission?: Yes (3) Hypertension Is this a current diagnosis for this admission?: Yes (4) Leukocytosis Is this a current diagnosis for this admission?: Yes (5) Suspected COVID-19 virus infection Is this a current diagnosis for this admission?: Yes - Assessment Summary: Patient overall appears stable. She is maintaining oxygen saturations on room air while at rest. She is lying fully supine comfortably. Noted to have trace to +1, nonpitting, edema to bilateral lower extremities with clear lung sounds. She does report continued shortness of breath. Evaluation for CHF is being considered; echocardiogram pending. Hopefully this can be arranged/obtained within the next 24 hours patient is anxious to go home and is rapidly improving towards that goal. Anticipate discharge next 24 hours. - Additional Information Resuscitation Status: Full Code Discharge Diet: Cardiac, Other (Comments) Discharge Activity: Activity As Tolerated, Balance Activity w/Rest, Slowly Increase Activity Referrals: GRACE COHEN MD [Primary Care Provider] - Follow up as needed ( office number) JACKELYN LLANES MD [ACTIVE STAFF] - (Follow up at earliest available appointment for evaluation for possible CHF. Recommend echocardiogram.) Prescriptions: Furosemide [Lasix 20 mg Tablet] 20 mg PO QAMP PRN #20 tablet PRN Reason: Levofloxacin [Levaquin 750 mg Tablet] 750 mg PO DAILY #5 tablet Albuterol Sulfate [Ventolin Hfa 8 gm Mdi] 2 puff IH Q4HP PRN #1 inhaler PRN Reason: Shortness Of Breath Home Medications: Amlodipine Besylate/Benazepril [Amlodipine-Benazepril 5-20 mg] 1 cap PO DAILY 07/16/20 Ascorbic Acid [Vitamin C] 1,000 mg PO DAILY 07/16/20 Bisoprolol/Hydrochlorothiazide [Bisoprolol-Hctz 5-6.25 mg Tab] 1 each PO DAILY 07/16/20 Cholecalciferol (Vitamin D3) [Vitamin D3 1000 Unit Tablet] 1,000 unit PO DAILY 07/16/20 Clonazepam [Klonopin] 0.5 mg PO BID 07/16/20 Fluoxetine HCl [Prozac] 20 mg PO DAILY 07/16/20 Fluoxetine HCl [Prozac] 40 mg PO DAILY 07/16/20 Multivit-Min/Folic Acid/Vit K1 [Multi For Her 50 Plus Softgel] 400 mcg PO DAILY 07/16/20 Nortriptyline HCl [Pamelor] 75 mg PO QHS 07/16/20 Omeprazole 40 mg PO DAILY 07/16/20 Pravastatin Sodium 80 mg PO QHS 07/16/20 Acetaminophen [Tylenol 325 mg Tablet] 650 mg PO Q4HP PRN tablet 07/17/20 Albuterol Sulfate [Ventolin Hfa 8 gm Mdi] 2 puff IH Q4HP PRN #1 inhaler 07/17/20 Furosemide [Lasix 20 mg Tablet] 20 mg PO QAMP PRN #20 tablet 07/17/20 Levofloxacin [Levaquin 750 mg Tablet] 750 mg PO DAILY #5 tablet 07/17/20 History of Present Illiness History of Present Illness: Per H&P by Dr. Ochoa: GILLES YOUNGER is a 75 year old female with a history of hypertension and reactive airway disease now presents with progressively worsening shortness of breath with exertion for the past 2 months and over the past week has been feeling short of breath and minimal activities like going to bathroom makes her significantly short of breath. Associated with this she also states that she has been having bilateral leg swelling over the past 2 months but denies orthopnea or PND. She also reports that she has been having cough productive of yellowish sputum, low-grade subjective fever and wheezing. She states that she has never been diagnosed with COPD in the past and has been a very long time since she quit smoking. She uses inhalers occasionally for reactive airway disease. She denies runny nose, congestion, sore throat, nausea, vomiting, recent contact with sick patient. She was treated with IV steroids and breathing treatment at the ED with interval improvement in her shortness of breath but her oxygen saturation dropped to 88-89 after walking 10 to 15 feet and became very short of breath. Hospital Course Hospital Course: (1) Bronchitis Improved. Now asymptomatic, maintaining SpO2, and desiring discharge home. Presented with cough productive of yellow sputum Leukocytosis has resolved. Chest x-ray showed no acute findings Patient was given ceftriaxone 1g IV at the ED Continue as needed breathing treatment; discharge w/ albuterol HFA as needed. Started on Levaquin 750 mg p.o. daily; Rx at discharge to complete course of breathing. May benefit from outpatient PFT (2) Exertional shortness of breath Resolved; now maintaining oxygen saturations while ambulatory on room air. Denies dypsnea w/ activity. Patient presented with dyspnea on exertion, bilateral lower extremity swelling Was noted to have wheezing on presentation at the ED BNP was 197, chest x-ray showed no acute findings Likely cause could be new onset heart failure vs undiagnosed COPD exacerbation Received gentle diuresis. Plan for outpatient cardiology work up. Remaining management as above. (3) Hypertension Blood pressure remains somewhat elevated; 150/69 this afternoon. Patient is noted to be anxious which may possibly be contributing. Have continued her home dose amlodipine, benazepril, bisoprolol, and hydrochlorothiazide. Low-sodium diet. Continued outpatient management. (4) Leukocytosis Resolved. (5) Suspected COVID-19 virus infection Ruled out. COVID testing negative. Physical Exam Vital Signs: Temp Pulse Resp BP Pulse Ox 97.5 F 111 H 16 150/69 H 93 07/17/20 11:17 07/17/20 11:17 07/17/20 11:17 07/17/20 11:17 07/17/20 11:17 Intake & Output 07/16/20 07/17/20 07/18/20 06:59 06:59 06:59 Intake Total 50 520 Output Total 200 Balance 50 320 Weight 100.9 kg 100.9 kg Results Laboratory Results: WBC 15.5 10^3/uL (4.0-10.5) H 07/17/20 06:50 RBC 4.71 10^6/uL (3.72-5.28) 07/17/20 06:50 Hgb 11.4 g/dL (12.0-15.5) L 07/17/20 06:50 Hct 35.1 % (36.0-47.0) L 07/17/20 06:50 MCV 75 fl (80-97) L 07/17/20 06:50 MCH 24.1 pg (27.0-33.4) L 07/17/20 06:50 MCHC 32.3 g/dL (32.0-36.0) 07/17/20 06:50 RDW 16.6 % (11.5-14.0) H 07/17/20 06:50 Plt Count 360 10^3/uL (150-450) 07/17/20 06:50 Lymph % (Auto) 10.5 % (13-45) L 07/16/20 08:10 [place] % (Auto) 0.9 % (3-13) L 07/16/20 08:10 Eos % (Auto) 0.0 % (0-6) 07/16/20 08:10 Baso % (Auto) 0.2 % (0-2) 07/16/20 08:10 Absolute Neuts (auto) 7.8 10^3/uL (1.7-8.2) 07/16/20 08:10 Absolute Lymphs (auto) 0.9 10^3/uL (0.5-4.7) 07/16/20 08:10 Absolute Monos (auto) 0.1 10^3/uL (0.1-1.4) 07/16/20 08:10 Absolute Eos (auto) 0.0 10^3/uL (0.0-0.6) 07/16/20 08:10 Absolute Basos (auto) 0.0 10^3/uL (0.0-0.2) 07/16/20 08:10 Seg Neutrophils % 88.4 % (42-78) H 07/16/20 08:10 D-Dimer 0.41 ug/mL (0.00-0.50) 07/15/20 20:26 Sodium 141.1 mmol/L (137-145) 07/17/20 06:50 Potassium 3.5 mmol/L (3.6-5.0) L D 07/17/20 06:50 Chloride 100 mmol/L (98-107) 07/17/20 06:50 Carbon Dioxide 28 mmol/L (22-30) 07/17/20 06:50 Anion Gap 13 (5-19) 07/17/20 06:50 BUN 21 mg/dL (7-20) H 07/17/20 06:50 Creatinine 0.84 mg/dL (0.52-1.25) 07/17/20 06:50 Est GFR ( Amer) > 60 (>60) 07/17/20 06:50 Est GFR (MDRD) Non-Af > 60 (>60) 07/17/20 06:50 Glucose 120 mg/dL (75-110) H 07/17/20 06:50 Calcium 9.5 mg/dL (8.4-10.2) 07/17/20 06:50 Total Bilirubin 0.3 mg/dL (0.2-1.3) 07/15/20 17:58 Direct Bilirubin 0.1 mg/dL (0.0-0.4) 07/15/20 17:58 Neonat Total Bilirubin Not Reportable 07/15/20 17:58 Neonat Direct Bilirubin Not Reportable 07/15/20 17:58 Neonat Indirect Bili Not Reportable 07/15/20 17:58 AST 51 U/L (14-36) H 07/15/20 17:58 ALT 35 U/L (<35) 07/15/20 17:58 Alkaline Phosphatase 59 U/L (38-126) 07/15/20 17:58 Troponin I < 0.012 ng/mL 07/16/20 08:10 NT-Pro-B Natriuret Pep 197 pg/mL (<125) H 07/15/20 17:58 Total Protein 7.2 g/dL (6.3-8.2) 07/15/20 17:58 Albumin 4.3 g/dL (3.5-5.0) 07/15/20 17:58 Urine Color STRAW 07/16/20 13:00 Urine Appearance CLEAR 07/16/20 13:00 Urine pH 6.0 (5.0-9.0) 07/16/20 13:00 Ur Specific [place] 1.006 07/16/20 13:00 Urine Protein NEGATIVE mg/dL (NEGATIVE) 07/16/20 13:00 Urine Glucose (UA) NEGATIVE mg/dL (NEGATIVE) 07/16/20 13:00 Urine Ketones NEGATIVE mg/dL (NEGATIVE) 07/16/20 13:00 Urine Blood NEGATIVE (NEGATIVE) 07/16/20 13:00 Urine Nitrite NEGATIVE (NEGATIVE) 07/16/20 13:00 Urine Bilirubin NEGATIVE (NEGATIVE) 07/16/20 13:00 Urine Urobilinogen NEGATIVE mg/dL (<2.0) 07/16/20 13:00 Ur Leukocyte Esterase NEGATIVE (NEGATIVE) 07/16/20 13:00 Urine WBC (Auto) 1 /HPF 07/16/20 13:00 Urine RBC (Auto) 1 /HPF 07/16/20 13:00 U Hyaline Cast (Auto) 1 /LPF 07/16/20 13:00 Urine Bacteria (Auto) TRACE /HPF 07/16/20 13:00 Squamous Epi Cells Auto <1 /HPF 07/16/20 13:00 Urine Mucus (Auto) RARE /LPF 07/16/20 13:00 Urine Ascorbic Acid NEGATIVE (NEGATIVE) 07/16/20 13:00 COVID-19 Source See comment 07/15/20 19:48 COVID-19 (MINI) Not Detected (Not Detect) 07/15/20 19:48 Influenza A (Rapid) NEGATIVE (NEGATIVE) 07/15/20 19:48 Influenza B (Rapid) NEGATIVE (NEGATIVE) 07/15/20 19:48 07/15/20 07/16/20 07/16/20 17:58 01:08 08:10 Troponin I < 0.012 < 0.012 < 0.012 NT-Pro-B Natriuret Pep 197 H Impressions: Chest X-Ray 07/15/20 16:05 IMPRESSION: NO ACUTE RADIOGRAPHIC FINDING IN THE CHEST. Stroke Is this a Stroke Patient?: No Acute Heart Failure Is this a Heart Failure Patient?: Yes Documentation of LVEF assessment?: Planned for after discharge LVEF: LVEF Greater Than 40% Anticoagulant Therapy: N/A Discharged on Evidence-Based Beta Blockers: Yes Discharged on ARNI?: No-Document Contraindications Reason(s) not discharged on ARNI: New onset heart failure - requires workup; echo as outpatient Discharged on ARB?: No-document contraindications Reason(s) not Discharged on ARB: Other ARB Reason - Other: on ACEI Discharged on ACEI?: Yes For LVEF <35%, discharged on Aldosterone Antagonist?: N/A (LVEF > or = 35%) Follow-up Appointment scheduled within 7 days?: Yes
== END 2020-07-17 12:10 | disposition home or self-care (01) ==
LOC: ER 15:14 → EH 23:37 → 3N 07-16 04:44
PROVIDERS: ADMIT Student in an Organized Health Care Education/Training Program; ATTEND Registered Nurse
DX: J40 Bronchitis, not specified as acute or chronic (principal); R06.09 Other forms of dyspnea; I10 Essential (primary) hypertension; D72.829 Elevated white blood cell count, unspecified; R60.0 Localized edema; Z20.828 Contact with and (suspected) exposure to other viral communicable diseases; R43.9 Unspecified disturbances of smell and taste; R09.02 Hypoxemia; E66.9 Obesity, unspecified; F41.9 Anxiety disorder, unspecified; Z87.891 Personal history of nicotine dependence; F32.9 Major depressive disorder, single episode, unspecified; Z82.49 Family history of ischemic heart disease and other diseases of the circulatory system; Z79.899 Other long term (current) drug therapy; Z95.828 Presence of other vascular implants and grafts; Z96.651 Presence of right artificial knee joint
CPT/HCPCS: 93005; 94640 ×2; 99285; 96365; 36415 ×3; 85025 ×2; 85027; 80048 ×2; 80053; 81001; 84484 ×2; 85379; 87804; 83880; 71045; 93010; G0378 ×3; U0003; A9270 ×19; J1940 ×2; J2930; J1650 ×2; J0696; C9803; 87635; J3490; J7512